=== PATIENT | female | born 1945 | race Hispanic/Latino ===

== ENCOUNTER 2021-11-19 07:57 | Outpatient (CLI) | payer MEDICARE, BC ==
[2021-11-19] MEDS ORDERED: Iopamidol-370 76% 500 ML 1 ML ONE (09:42)
== END 2021-11-19 07:58 | disposition home or self-care (01) ==
LOC: BICCT 07:57
PROVIDERS: ATTEND Thoracic Surgery (Cardiothoracic Vascular Surgery)
DX: I72.2 Aneurysm of renal artery (principal); N28.1 Cyst of kidney, acquired; K76.89 Other specified diseases of liver
CPT/HCPCS: 74174; 82565; Q9967

== ENCOUNTER 2023-11-19 07:37 | Outpatient (CLI) | payer MEDICARE ==
[2023-11-19] MEDS ORDERED: Iopamidol 370 76% 100 ML VIAL ONE (12:00)
== END 2023-11-19 07:38 | disposition home or self-care (01) ==
LOC: BICCT 07:37
PROVIDERS: ATTEND Thoracic Surgery (Cardiothoracic Vascular Surgery)
DX: I72.2 Aneurysm of renal artery (principal); K57.30 Diverticulosis of large intestine without perforation or abscess without bleeding; K76.89 Other specified diseases of liver
CPT/HCPCS: 74174; 82565; Q9967